=== PATIENT | female | born 1965 | race Two or more races ===

== ENCOUNTER 2019-05-31 08:22 | Inpatient (IN) | payer MEDICAID ==
[2019-05-17 15:47] LABS: APPEARANCE,URINE CLEAR; BASOPHILS % (AUTO) 1.2 % (0.0-2.0); BILIRUBIN, URINE NEGATIVE (NEGATIVE); COLOR,URINE PALE YELLOW; EOSINOPHILS % (AUTO) 2.1 % (0.0-3.0); GLUCOSE, URINE (UA) NEGATIVE (NEGATIVE); HEMATOCRIT 40.3 % (37.0-47.0); HEMOGLOBIN 12.9 G/DL (12.0-16.0); KETONES,URINE NEGATIVE (NEGATIVE); LEUKOCYTE ESTERASE ,URINE 2+ (NEGATIVE); LYMPHOCYTES % (AUTO) 32.3 % (20.0-45.0); MEAN CORPUSCULAR VOLUME 84 FL (80-99); MONOCYTES % (AUTO) 12.1 % (1.0-10.0); NEUTROPHILS % (AUTO) 52.4 % (45.0-75.0); NITRITE,URINE NEGATIVE (NEGATIVE); PH,URINE 7 (4.5-8.0); PLATELET COUNT 259 K/UL (150-450); PROTEIN,URINE NEGATIVE (NEGATIVE); RED BLOOD COUNT 4.79 M/UL (4.20-5.40); UROBILINOGEN,URINE NORMAL MG/DL (0.0-1.0); WHITE BLOOD COUNT 10.7 K/UL (4.8-10.8)
[2019-05-17 15:51] LABS: INR 0.9 (0.9-1.1)
[2019-05-17 15:54] LABS: ANION GAP 11 mmol/L (5-15); BLOOD UREA NITROGEN 6 mg/dL (7-18); CALCIUM 9.2 MG/DL (8.5-10.1); CARBON DIOXIDE 27 MMOL/L (21-32); CHLORIDE 103 MMOL/L (98-107); CREATININE 0.7 MG/DL (0.55-1.30); POTASSIUM 3.7 MMOL/L (3.5-5.1); SODIUM 141 MMOL/L (136-145)
--- NOTE | 2019-05-17 16:14 | Diagnostic Imaging Report ---
Indication: Cough Technique: 2 views of the chest Comparison: None Findings: There is left chest port catheter in place. Lungs and pleural spaces are clear. Heart size is normal Impression: No acute process
--- NOTE | 2019-05-25 16:34 | Cardiology Report ---
APPROVED REPORT EKG Measurement Heart [id number] Normal sinus rhythm Normal ECG
--- NOTE | 2019-05-30 15:00 | Pre-op HX & Phy Repo 2 SIG ---
DATE OF ADMISSION: 05/31/2019 SCHEDULED FOR SURGERY: May 31, 2019. HISTORY OF PRESENT ILLNESS: The patient is a 53-year-old female in overall stable health, who has infiltrating ductal carcinoma of the right breast. She was first seen in November with a 2.5 cm mass in the upper outer quadrant at 10 o'clock 8 cm from the nipple, with core biopsy revealing infiltrating ductal carcinoma poorly differentiated. She was estrogen receptor positive, progesterone receptor negative, HER2 FISH positive. She received neoadjuvant chemotherapy that ended April 14, 2019. The mass became smaller with followup ultrasound showing that it went from 2.1 x 1.7 x 2.5 cm to 1.6 x 1.4 x 1.6 cm. She is now scheduled to undergo right breast partial mastectomy and right axillary lymph node biopsy. PAST MEDICAL HISTORY/MEDICATIONS: Atenolol for hypertension. ALLERGIES: None. OPERATIONS: Cholecystectomy in 2013, section x1. REVIEW OF SYSTEMS: 1, para 1. Last menstrual period August 2018. PHYSICAL EXAMINATION: VITAL SIGNS: The patient is 5 feet 5 inches and 162 pounds. Vital signs are stable. HEENT: Within normal limits. LUNGS: Clear. HEART: Regular rhythm. BREASTS: Moderately large in size and slightly ptotic. There is approximate 2 cm mass palpable laterally in the upper outer quadrant of the right breast. There is no palpable axillary or supraclavicular lymphadenopathy. ABDOMEN: Soft. PELVIC AND RECTAL: Per primary care. EXTREMITIES: Without edema. NEUROLOGIC: Physiologic. IMPRESSION: Infiltrating ductal carcinoma, right breast. PLAN: Right breast partial mastectomy and right axillary lymph node biopsy, has had a full discussion with the patient regarding the nature of her condition, the nature of the surgery, indications, alternatives, options, and risks including bleeding, infection, need for additional surgery based on final pathology, need for additional treatments based on final pathology including radiation, chemotherapy, hormonal blockade and others, possibility of scarring, and deformity of the breast and nipple, etc. All questions have been answered. She understands and agrees to proceed. Delano Adam M.D. DR: MASHA/PRINCE JOB#: [id number] CC:
[~2019-05-31] VITALS: Ht 154.9 cm; Wt 70.8 kg
[2019-05-31] VITALS (17 sets, daily range): BP systolic 115–157; BP diastolic 64–87
[2019-05-31] MEDS ORDERED: Bupivacaine w/Epi 0.5% 30ml Vial INJ ONE (09:31)
[2019-05-31] MEDS ORDERED: Lidocaine 1% 10mg/ml/Epi 0.005mg/ml 30ml vial INJ ONE (09:31)
[2019-05-31] MEDS ORDERED: Bupivacaine 0.5% Inj 30 ml vial INJ ONE (09:31)
[2019-05-31] MEDS ORDERED: LR 1000ml 1,000 ML IVLG SCH (09:53)
[2019-05-31] MEDS ORDERED: Hydromorphone 0.5mg/0.5ml inj IVP PRN (10:00)
[2019-05-31] MEDS ORDERED: Acetaminophen (Non formulary) 100 ML IV ONE (10:00)
[2019-05-31] MEDS ORDERED: oxyCODONE HCL/Acetaminophen 5/325mg ORAL PRN (10:00)
[2019-05-31] MEDS ORDERED: HYDROcodone/Acetamin 5/325 tab ORAL PRN ×2 (10:00→12:30)
[2019-05-31] MEDS ORDERED: Ketorolac 30mg Inj IV PRN ×2 (10:00)
[2019-05-31] MEDS ORDERED: HYDROcodone/Acetamin 7.5/325 tab ORAL PRN (10:00)
[2019-05-31] MEDS ORDERED: LORazepam Inj 2mg/ml 1ml IV PRN (10:00)
[2019-05-31] MEDS ORDERED: Metoclopramide 10mg/2ml Inj IVP PRN (10:00)
[2019-05-31] MEDS ORDERED: Atropine Sulfate 0.4mg/ml inj IVP PRN (10:00)
[2019-05-31] MEDS ORDERED: Midazolam 2mg/2ml Inj IVP PRN (10:00)
[2019-05-31] MEDS ORDERED: fentaNYL 100 mcg/2 mL IV PRN (10:00)
[2019-05-31] MEDS ORDERED: Labetalol 5mg/ml 20ml vial IV PRN (10:00)
[2019-05-31] MEDS ORDERED: DiphenhydrAMINE 50mg/ml Inj IVP PRN (10:00)
[2019-05-31] MEDS ORDERED: Meperidine 50mg/ml Inj(FOR RIGORS ONLY) IVP PRN (10:00)
[2019-05-31] MEDS ORDERED: ATENOLOL50 MG ORAL (10:03)
--- NOTE | 2019-05-31 10:07 | Anethesia Preoperative Eval ---
Anesthesia Pre-op PMH/ROS General Date of Evaluation: May 31, 2019 Time of Evaluation: 10:37 Anesthesiologist: Joyce ASA Score: ASA 3 Mallampati Score Class I : Soft palate, uvula, fauces, pillars visible Class II: Soft palate, uvula, fauces visible Class III: Soft palate, base of uvula visible Class IV: Only hard plate visible Mallampati Classification: Class II Surgeon: Jair Diagnosis: Right Breast Cancer Surgical Procedure: Right Breast Partial Mastectomy with Axillary lymph node Anesthesia History: none Family History: no anesthesia problems Allergies: Coded Allergies: No Known Allergies (Unverified , 05/31/19) Medications: see eMAR Patient NPO?: Yes Past Medical History Cardiovascular: Reports: HTN, other - HL Gastrointestinal/Genitourinary: Reports: GERD Hematology/Immune: Reports: other - R Breast CA Other: obesity - BMI 32 PSxH Narrative: Cholecystectomy Anesthesia Pre-op Phys. Exam Physician Exam Last Vital Signs Date Time Temp Pulse Resp B/P (MAP) Pulse Ox O2 Delivery O2 Flow Rate FiO2 05/31/19 09:58 Room Air 05/31/19 09:45 98.7 76 18 116/71 98 Constitutional: NAD Neurologic: CN 2-12 intact Cardiovascular: RRR Respiratory: CTA Gastrointestinal: S/NT/ND Airway Exam Mallampati Score: Class II MO: full ROM: full Teeth: missing, intact Anesthesia Pre-op A/P Risk Assessment & Plan Assessment: ASA 3 Plan: GA, SED Status Change Before Surgery: No Pre-Antibiotics Dru Gram Ancef IV Given Within 1 Hr of Incision: Yes Time Given: 10:52 Naren Cook MD May 31, 2019 10:07
[2019-05-31] MEDS ORDERED: Propofol 200mg/20ml IV ONE ×2 (10:09→10:10)
[2019-05-31] MEDS ORDERED: Lidocaine 1% MPF 10mg/ml 5ml ONE (10:09)
[2019-05-31] MEDS ORDERED: Dexamethasone 4mg/ml vial ONE (10:09)
[2019-05-31] MEDS ORDERED: Sodium Chloride 10ml vial INJ ONE (10:09)
[2019-05-31] MEDS ORDERED: Lidocaine 1% Plain 30 ml INJ ONE (10:10)
[2019-05-31] MEDS ORDERED: fentaNYL 100 mcg/2 mL IV ONE (10:10)
--- NOTE | 2019-05-31 10:18 | 48 Hour Post Anesthesia Eval ---
Post Anesthesia Evaluation Procedure: Right Breast Partial Mastectomy with Axillary lymph node Date of Evaluation: May 31, 2019 Airway: patent Nausea: No Vomiting: No Pain Intensity: 2 Hydration Status: adequate Cardiopulmonary Status: Stable Mental Status/LOC: patient returned to baseline Follow-up Care/Observations: 0 Post-Anesthesia Complications: 0 Follow-up care needed: ready to discharge Naren Cook MD May 31, 2019 10:18
--- NOTE | 2019-05-31 10:18 | Immediate Post-Op Evaluation ---
Immediate Post-Op Evalulation Immediate Post-Op Evalulation Procedure: Right Breast Partial Mastectomy with Axillary lymph node Date of Evaluation: May 31, 2019 Time of Evaluation: 12:39 IV Fluids: 800 LR Blood Products: 0 Estimated Blood Loss: 25 Urinary Output: 0 Blood Pressure Systolic: 115 Blood Pressure Diastolic: 64 Pulse Rate: 87 Respiratory Rate: 16 O2 Sat by Pulse Oximetry: 100 Temperature (Fahrenheit): 99.2 Pain Score (1-10): 2 Nausea: No Vomiting: No Complications 0 Patient Status: awake, reacts, patent, extubated, none Hydration Status: adequate Dru Gram Ancef IV Given Within 1 Hr of Incision: Yes Time Given: 10:52 Naren Cook MD May 31, 2019 10:18
--- NOTE | 2019-05-31 10:21 | Pre-Procedure Note/Attestation ---
Pre-Procedure Note/Attestation Complete Prior to Procedure Planned Procedure: right Procedure Narrative: right breast partial mastectomy and right axillary lymph node biopsy Indications for Procedure Pre-Operative Diagnosis: invasive ductal carcinoma right breast Attestation I attest that I discussed the nature of the procedure; its benefits; risks and complications; and alternatives (and the risks and benefits of such alternatives ), prior to the procedure, with the patient (or the patient's legal pharmaceutical specialty representative). I attest that, if there was a reasonable possibility of needing a blood transfusion, the patient (or the patient's legal pharmaceutical specialty representative) was given the [facility] standardized written summary, pursuant to the Cam Sadnra Blood Safety Act ([place] Health and Safety Code # 1645, as amended). I attest that I re-evaluated the patient just prior to the surgery and that there has been no change in the patient's H&P, except as documented below: none Delano Adam MD May 31, 2019 10:21
[2019-05-31] MEDS ORDERED: Sterile Water Irrig 1000ml IRRIG ONE (10:30)
[2019-05-31] MEDS ORDERED: LR 1000ml ONE (10:30)
[2019-05-31] MEDS ORDERED: NS Irrig 1000ml IRRIG ONE (12:01)
--- NOTE | 2019-05-31 12:28 | Brief Operative Note ---
Immediate Post Operative Note Operative Note Pre-op Diagnosis: invasive ductal carcinoma right breast Procedure: right breast partial mastectomy and right axillary lymph node biopsy Post-op Diagnosis: same Post-op Diagnosis: same as pre-op Findings: consistent w/pre-op dx studies Surgeon: al Anesthesiologist: ernestina Anesthesia: general Specimen: yes - right breast cancer, right axillary lymph nodes Complications: none Condition: stable Fluids: see anesthesia record Estimated Blood Loss: minimal Drains: JUDI Implant(s) used?: No Delano Adam MD May 31, 2019 12:28
--- NOTE | 2019-05-31 14:00 | NUR ---
NURSE NOTES: REC'D FROM PACU SP RT BREAST PARTIAL MASTECTOMY AND RT AXILLA LYMPH NODE DISSECTION. DROWSY BUT AROUSABLE. IV INFUSING. RT BREATS DRESSING DRY AND INTACT . WITH SURGICAL BRA ON. JUDI IN PLACE WITH MINIMAL RED DRAINAGE. V/S TAKEN. IN NO APPARENT DISTRESS.
[2019-05-31] MEDS: HYDROmorphone 1mg/ml Carpuject SUBQ PRN (15:37)
[2019-05-31] MEDS: D5 1/2NS w/KCl 20mEq 1,000 ML IV SCH (15:44)
--- NOTE | 2019-05-31 16:55 | NUR ---
NURSE NOTES: pt and showed and instructed how to empty tracie martin and record output. understood instructions.
--- NOTE | 2019-05-31 17:30 | Operative Note - Dictated ---
DATE OF OPERATION: 05/31/2019 SURGEON: Delano Adam M.D. T[employer]ING MILL OPERATOR: None. ANESTHESIOLOGIST: Naren Cook M.D. TYPE OF ANESTHESIA: General. PREOPERATIVE DIAGNOSIS: Invasive ductal carcinoma, right breast. POSTOPERATIVE DIAGNOSIS: Invasive ductal carcinoma, right breast. OPERATION PERFORMED: Right breast partial mastectomy and right axillary lymph node biopsy. DESCRIPTION OF PROCEDURE: The patient was taken to the operating room and under general anesthesia with sequential compression device stockings in place, she was prepped and draped in the usual fashion. The patient had a 2.5 cm mass in the upper outer quadrant at 10 o'clock, 8 cm from the nipple. Estrogen positive, progesterone negative, HER-2 FISH positive. She received neoadjuvant chemotherapy with reduction in size of the mass. DESCRIPTION OF PROCEDURE: The patient was taken to the operating room and under general anesthesia with sequential compression device stockings in place, she was prepped and draped in usual fashion. A curvilinear outer right breast incision was made achieving hemostasis with cautery and dissecting flaps circumferentially. Right upper quadrant was resected as a quadrantectomy orienting the specimen with sutures anterior, superior, and medial. Hemostasis was achieved with cautery. Pathology inspection revealed close margin posterior and inferior and additional tissue was taken in this section. The field was irrigated. Hemostasis secured with cautery. Incision was closed with interrupted 3-0 Vicryl deep dermal subcutaneous sutures followed by continuous 5-0 Monocryl subcuticular suture. An axillary incision was made achieving hemostasis with cautery and incising the clavipectoral fascia. There were at least 2 large abnormal nodes, which were resected as lower level dissection using the Thunderbeat electrosurgical device. The field was irrigated and hemostasis was secured. Through a separate stab incision inferolaterally, a large flat Rudy-Rojas drain was placed into the axilla and sutured to the skin with 2-0 nylon suture. After irrigating and ascertaining and the hemostasis was secured, the clavipectoral fascia was closed with interrupted 3-0 Vicryl and the subcutaneous tissues closed with interrupted 3-0 Vicryl. The skin was closed with continuous 4-0 Monocryl subcuticular suture. Mastisol and half-inch Steri-Strips were applied to both incisions followed by dry sterile dressing. Final sponge and needle counts were correct. A postoperative surgical brassiere was placed. The patient tolerated the procedure well and left the operating room in good condition. Delano Adam M.D. DR: DONTRELL JOB#: [id number] CC:
[2019-05-31] MEDS: ceFAZolin sod 1 GM in D5W 55 ML IV SCH (17:56)
--- NOTE | 2019-05-31 18:59 | NUR ---
NURSE NOTES: IN NO APPARENT DISTRESS. CONDITION STABLE.
--- NOTE | 2019-05-31 19:30 | NUR ---
HAND-OFF: Report given to jadiel ruiz rn.
--- NOTE | 2019-05-31 19:31 | NUR ---
NURSE NOTES: Received report & pt from JUVENTINO Peres. Pt lying in bed, a&ox4, on O2 via NC @ 2LPM. No s/s of acute distress & no c/o pain at this time. Surgical dressing C/D/I with surgical bra on. JUDI drain to bulb suction. IV site intact with IVF running as ordered. Bed in lowest position, call light within reach. Will continue to monitor.
[2019-06-01] VITALS: BP 121/69
[2019-06-01] MEDS: HYDROmorphone 1mg/ml Carpuject SUBQ PRN (01:38)
[2019-06-01] MEDS: D5 1/2NS w/KCl 20mEq 1,000 ML IV SCH (01:38)
[2019-06-01] MEDS: ceFAZolin sod 1 GM in D5W 55 ML IV SCH (01:38)
[2019-06-01 04:00] VITALS: BP 106/63
--- NOTE | 2019-06-01 06:22 | NUR ---
NURSE NOTES: Ambulated pt with RN assistance around hallway; 2 laps. No distress & no c/o pain. Steady gait.
--- NOTE | 2019-06-01 07:19 | NUR ---
HAND-OFF: Report given to JUVENTINO Peres. Pt in stable condition.
--- NOTE | 2019-06-01 07:36 | NUR ---
NURSE NOTES: AWAKE/ALERT. PAIN SCALE 4/10. GIVEN NORCO 5/325 1 TAB PO. RT BREAST DRESSING DRY AND INTACT WITH JUDI IN PLACE WITH MINIMAL RED DRAINAGE. SURGICAL BRA ON. IN NO DISTRESS.
--- NOTE | 2019-06-01 07:55 | 48 Hour Post Anesthesia Eval ---
Post Anesthesia Evaluation Procedure: Right Breast Partial Mastectomy with Axillary lymph node Date of Evaluation: Jun 01, 2019 Airway: patent Nausea: No Vomiting: No Hydration Status: adequate Cardiopulmonary Status: at baseline Mental Status/LOC: patient returned to baseline Post-Anesthesia Complications: 0 Follow-up care needed: N/A - further care as per primary team Cori Daniel MD Jun 01, 2019 07:55
[2019-06-01 08:00] VITALS: BP 123/76
--- NOTE | 2019-06-01 09:17 | NUR ---
NURSE NOTES: REINFORCED JUDI INSTRUCTIONS HOW TO EMPTY JUDI AND RECORD OUTPUT. INSTRUCTIONS GIVEN TO PT, AND DAUGHTER., ALL UNDERSTOOD INSTRUCTIONS.
--- NOTE | 2019-06-01 09:22 | NUR ---
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
--- NOTE | 2019-06-01 09:30 | NUR ---
NURSE NOTES: AMBULATED OUT IN THE ABDULLAHI TOLERATED THEN UP IN CHAIR. IN NO DISTRESS.
[2019-06-01] MEDS ORDERED: Tubing IV Secondary IV ONE (09:36)
--- NOTE | 2019-06-01 09:37 | NUR ---
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
[2019-06-01 12:00] VITALS: BP 114/69
[2019-06-01] MEDS ORDERED: HYDROCODON-ACE1 EA15 ORAL (13:14)
--- NOTE | 2019-06-01 13:14 | General Progress Note ---
Progress Note Progress Note AVSS Required Dilaudid overnight but using [place] this AM. Right breast and axilla incisions clean and dry with intact steristrips. JUDI 8cc serosang Imp. Doing well Plan: discharge f/u 06/07 office Rx [place] #30 Instructions/limitations/supplies discussed/provided Delano Adam MD Jun 01, 2019 13:14
--- NOTE | 2019-06-02 09:04 | Discharge Summary ---
Discharge Summary Hospital Course Date of Admission May 31, 2019 at 15:09 Date of Discharge Jun 01, 2019 at 14:01 Admitting Diagnosis Invasive ductal carcinoma, right breast. Reason for Hospitalization: elective surgery HPI Cristel Willson is a 53 year old female was admitted on May 31, 2019 at 15: 09 for Invasive ductal carcinoma, right breast. Patient was admitted for elective surgery. Procedures s/p 05/31/19 trudi Adam Right breast partial mastectomy and right axillary lymph node biopsy. Hospital Course status post surgery postoperative surgical brassiere was placed at the end of the surgery course of recovery uneventful initially IV fluids s/p perioperative antibiotic pain management addressed ; pain controlled hemodynamically stable ambulated right breast and axilla incisions clean and dry, with intact Steri-Strips DVT prophylaxis with SCD provided , while in the bed JUDI drain output was clsoely monitored patient was taught care of JUDI drain tolerated diet , IV fluids discontinued GI prophylaxis provided antiemetics were on board as needed blood pressure was managed with Atenolol and remained stable voided freely bowel regimen instituted patient was stable for discharge prescription provided for analgesic discharge instructions/limitation/supplies discussed and provided patient to follow-up with surgeon in the office as outpatient on with results of biopsy FINAL DIAGNOSES Invasive ductal carcinoma, right breast s/p right breast partial mastectomy and right axillary lymph node biopsy HTN Discharge Medications Continued Medications: Atenolol* (Tenormin*) 50 Mg Tablet 50 MG ORAL DAILY, TAB (This prescription has been renewed) Hydrocodone/Acetaminophen 5-325* (Hydrocodone/Acetaminophen 5-325*) 1 Each Tablet 1 TAB ORAL Q4H PRN for For Pain, #30 TAB 0 Refills (This prescription has been renewed) Discharge Discharge Disposition Patient was discharged home Discharge Instructions Discharge Instructions Special Instructions I have been assigned to complete a D/C Summary on this account. I was not involved in the patient management Treasure Verdin NP Jun 02, 2019 09:04
== END 2019-06-01 14:01 | disposition home or self-care (01) | DRG 363 ==
LOC: SUR 08:22 → 3E 15:09
PROC: 07B50ZX Excision of Right Axillary Lymphatic, Open Approach, Diagnostic (ICD-10-PCS; 2019-05-31)
PROC: 0HBT0ZZ Excision of Right Breast, Open Approach (ICD-10-PCS; principal; 2019-05-31 10:30)
DX: C50.411 Malignant neoplasm of upper-outer quadrant of right female breast (principal); I10 Essential (primary) hypertension; Z90.49 Acquired absence of other specified parts of digestive tract; Z17.0 Estrogen receptor positive status [ER+]
CPT/HCPCS: 36415; 71046; 80048; 81001; 85025; 85610; 85730; 87081; 93005; 94003; 94150; J2405; J2765